=== PATIENT | female | born 1975 | race Caucasian/White ===

== ENCOUNTER 2017-09-05 16:34 | Emergency (ER) | payer OTHER ==
[2017-09-05] MEDS: DIPHENHYDRAMINE 25 MG CAP PO (18:22)
[2017-09-05] MEDS: HYDROCODONE/APAP (5/325) TAB PO (19:40)
[2017-09-05] MEDS: SOD CHLORIDE 0.9% 1,000 ML IV (19:47)
[2017-09-05] MEDS: DEXAMETHASONE 10 MG/ML 1 ML INJ PO (19:51)
== END 2017-09-05 21:52 | disposition home or self-care (01) ==
LOC: FTE 16:34
DX: R10.9 Unspecified abdominal pain (principal); C56.9 Malignant neoplasm of unspecified ovary; T36.8X5A Adverse effect of other systemic antibiotics, initial encounter
CPT/HCPCS: 96360; 99284-25

== ENCOUNTER 2017-09-07 09:43 | Observation (INO) | payer OTHER ==
[2017-09-07] MEDS: SOD CHLORIDE 0.9% 1,000 ML IV (11:13)
[2017-09-07] MEDS: ONDANSETRON 4 MG INJ IV (11:18)
[2017-09-07] MEDS: morphine 4 MG/ML VIAL IV (11:18)
[2017-09-07] MEDS: ACETAMINOPHEN 325 MG TAB PO (11:29)
[2017-09-07 11:32] LABS: ADD MAN DIFF? NO
[2017-09-07 11:40] LABS: WHITE BLOOD COUNT 5.9 10^3/ul (4.8-10.8)
[2017-09-07 11:40] LABS: BASOPHILS % 0.3 % (0.0-2.0); EOSINOPHILS % 0.5 % (0.0-7.0); HEMATOCRIT 37.3 % (37.0-47.0); HEMOGLOBIN 12.6 g/dl (12.0-16.0); LYMPHOCYTES # 1.1 10^3/ul (0.8-2.9); LYMPHOCYTES % 18.2 % (15.0-51.0); MEAN CORPUSCULAR HEMOGLOBIN 31.2 pg (29.0-33.0); MEAN CORPUSCULAR HGB CONC 33.8 g/dl (32.0-37.0); MEAN CORPUSCULAR VOLUME 92.3 fl (82.0-101.0); MEAN PLATELET VOLUME 9.7 fl (7.4-10.4); MONOCYTE # 0.4 10^3/ul (0.3-0.9); MONOCYTES % 6.9 % (0.0-11.0); NEUTROPHIL # 4.4 10^3/ul (1.6-7.5); NEUTROPHILS % 73.8 % (39.0-77.0); PLATELET COUNT 237 10^3/UL (140-415); RED BLOOD COUNT 4.04 10^6/ul (4.20-5.40); RED CELL DISTRIBUTION WIDTH 11.5 % (11.5-14.5)
[2017-09-07 11:54] LABS: ALANINE AMINOTRANSFERASE 38 IU/L (13-69); ALBUMIN 4.4 g/dl (3.3-4.9); ALBUMIN/GLOBULIN RATIO 1.18; ALKALINE PHOSPHATASE 100 IU/L (42-121); ANION GAP 20 (8-16); ASPARTATE AMINO TRANSFERASE 32 IU/L (15-46); BILIRUBIN,INDIRECT 0.1 mg/dl (0-1.1); BILIRUBIN,TOTAL 0.1 mg/dl (0.2-1.3); BLOOD UREA NITROGEN 11 mg/dl (7-20); CALCIUM 9.4 mg/dl (8.4-10.2); CARBON DIOXIDE 26 mmol/L (21-31); CHLORIDE 105 mmol/L (97-110); CREATININE 0.88 mg/dl (0.44-1.00); GLUCOSE 92 mg/dl (70-220); LIPASE 93 U/L (23-300); POTASSIUM 4.7 mmol/L (3.5-5.1); SODIUM 146 mmol/L (135-144); TOTAL PROTEIN 8.1 g/dl (6.1-8.1)
[2017-09-07 11:56] LABS: INR 1.04; PROTIME 13.7 Sec (11.9-14.9); PT RATIO 1.1
[2017-09-07 11:57] LABS: PARTIAL THROMBOPLASTIN TIME 31.9 Sec (25.0-35.0)
[2017-09-07 12:22] LABS: ADD UMIC NO; UR ASCORBIC ACID NEGATIVE (NEGATIVE); UR BILIRUBIN (Dip) NEGATIVE (NEGATIVE); UR BLOOD (Dip) NEGATIVE (NEGATIVE); UR CLARITY CLEAR (CLEAR); UR COLOR STRAW (YELLOW); UR GLUCOSE (Dip) NEGATIVE (NEGATIVE); UR KETONES (Dip) NEGATIVE (NEGATIVE); UR LEUKOCYTE ESTERASE (Dip) NEGATIVE Leu/ul (NEGATIVE); UR NITRITE (Dip) NEGATIVE (NEGATIVE); UR SPECIFIC GRAVITY (Dip) 1.004 (1.003-1.030); UR TOTAL PROTEIN (Dip) NEGATIVE (NEGATIVE); UR UROBILINOGEN (Dip) NEGATIVE (NEGATIVE)
[2017-09-07] MEDS ORDERED: ACETAMINOPHEN 325 MG TAB PO (12:30)
[2017-09-07] MEDS ORDERED: ONDANSETRON 4 MG INJ IV (12:30)
[2017-09-07] MEDS ORDERED: CEFTRIAXONE 1 GM/50 ML (PMX) 50 ML IVPB (17:00)
[2017-09-07] MEDS: CEFTRIAXONE 1 GM/50 ML (PMX) 50 ML IVPB (17:43)
[2017-09-07] MEDS ORDERED: morphine 2 MG INJ IV (23:30)
[2017-09-08] MEDS: LORAZEPAM 0.5 MG TAB PO (02:38)
[2017-09-08] MEDS: ACETAMINOPHEN 325 MG TAB PO ×2 (03:04→21:24)
[2017-09-08 05:19] LABS: ADD MAN DIFF? NO
[2017-09-08 05:29] LABS: BASOPHILS % 0.4 % (0.0-2.0); EOSINOPHILS # 0.1 10^3/ul (0.0-0.5); EOSINOPHILS % 2.8 % (0.0-7.0); HEMATOCRIT 35.2 % (37.0-47.0); HEMOGLOBIN 11.9 g/dl (12.0-16.0); LYMPHOCYTES # 1.3 10^3/ul (0.8-2.9); LYMPHOCYTES % 26.4 % (15.0-51.0); MEAN CORPUSCULAR HGB CONC 33.8 g/dl (32.0-37.0); MEAN CORPUSCULAR VOLUME 91.7 fl (82.0-101.0); MONOCYTE # 0.4 10^3/ul (0.3-0.9); MONOCYTES % 8.5 % (0.0-11.0); NEUTROPHIL # 3.1 10^3/ul (1.6-7.5); NEUTROPHILS % 61.9 % (39.0-77.0); PLATELET COUNT 215 10^3/UL (140-415); RED BLOOD COUNT 3.84 10^6/ul (4.20-5.40); RED CELL DISTRIBUTION WIDTH 11.7 % (11.5-14.5)
[2017-09-08 05:54] LABS: ANION GAP 18 (8-16); BLOOD UREA NITROGEN 10 mg/dl (7-20); CALCIUM 9.5 mg/dl (8.4-10.2); CARBON DIOXIDE 27 mmol/L (21-31); CHLORIDE 106 mmol/L (97-110); CREATININE 0.76 mg/dl (0.44-1.00); GLUCOSE 93 mg/dl (70-220); POTASSIUM 4.1 mmol/L (3.5-5.1); SODIUM 147 mmol/L (135-144)
[2017-09-08] MEDS: PANTOPRAZOLE (EC) 40 MG TAB PO (06:11)
[2017-09-08] MEDS: ENOXAPARIN 30 MG/0.3 ML SYG SC ×2 (09:00→20:42)
[2017-09-08] MEDS: SOD CHLORIDE 0.9% 500 ML IVPB (15:09)
[2017-09-08 15:24] LABS: ADD UMIC NO; UR ASCORBIC ACID NEGATIVE (NEGATIVE); UR BILIRUBIN (Dip) NEGATIVE (NEGATIVE); UR BLOOD (Dip) NEGATIVE (NEGATIVE); UR CLARITY CLEAR (CLEAR); UR COLOR COLORLESS (YELLOW); UR GLUCOSE (Dip) NEGATIVE (NEGATIVE); UR KETONES (Dip) NEGATIVE (NEGATIVE); UR LEUKOCYTE ESTERASE (Dip) NEGATIVE Leu/ul (NEGATIVE); UR NITRITE (Dip) NEGATIVE (NEGATIVE); UR SPECIFIC GRAVITY (Dip) 1.004 (1.003-1.030); UR TOTAL PROTEIN (Dip) NEGATIVE (NEGATIVE); UR UROBILINOGEN (Dip) NEGATIVE (NEGATIVE)
[2017-09-08] MEDS: SOD FERRIC GLUC COMPLX 125 MG in SOD CHLORIDE 0.9% 100 ML IVPB (16:21)
[2017-09-08] MEDS ORDERED: DEXAMETHASONE 10 MG/ML 1 ML INJ IV (18:00)
[2017-09-08] MEDS ORDERED: DIPHENHYDRAMINE 50 MG INJ IV (18:00)
[2017-09-08] MEDS: DEXAMETHASONE IVPB (22:16)
[2017-09-08] MEDS: DEXTROSE 5% IVPB (22:16)
[2017-09-08] MEDS: DIPHENHYDRAMINE 50 MG INJ IV (22:16)
[2017-09-08] MEDS: ONDANSETRON IVPB (22:16)
[2017-09-08] MEDS: CARBOPLATIN IV (22:39)
[2017-09-08] MEDS: SOD CHLORIDE 0.9% IV (22:39)
[2017-09-09] MEDS: SOD CHLORIDE 0.9% IV ×2 (01:14→16:28)
[2017-09-09] MEDS: GEMCITABINE IV (01:14)
[2017-09-09 05:15] LABS: ADD MAN DIFF? NO
[2017-09-09 05:19] LABS: BASOPHILS % 0.4 % (0.0-2.0); EOSINOPHILS % 0.2 % (0.0-7.0); HEMATOCRIT 37.6 % (37.0-47.0); HEMOGLOBIN 12.5 g/dl (12.0-16.0); LYMPHOCYTES # 0.7 10^3/ul (0.8-2.9); LYMPHOCYTES % 14.7 % (15.0-51.0); MEAN CORPUSCULAR HEMOGLOBIN 30.5 pg (29.0-33.0); MEAN CORPUSCULAR HGB CONC 33.2 g/dl (32.0-37.0); MEAN CORPUSCULAR VOLUME 91.7 fl (82.0-101.0); MEAN PLATELET VOLUME 10.2 fl (7.4-10.4); MONOCYTE # 0.1 10^3/ul (0.3-0.9); MONOCYTES % 1.1 % (0.0-11.0); NEUTROPHIL # 3.8 10^3/ul (1.6-7.5); NEUTROPHILS % 83.4 % (39.0-77.0); PLATELET COUNT 239 10^3/UL (140-415); RED CELL DISTRIBUTION WIDTH 11.6 % (11.5-14.5)
[2017-09-09 05:19] LABS: WHITE BLOOD COUNT 4.5 10^3/ul (4.8-10.8)
[2017-09-09] MEDS: PANTOPRAZOLE (EC) 40 MG TAB PO (05:40)
[2017-09-09 05:45] LABS: ANION GAP 18 (8-16); BLOOD UREA NITROGEN 13 mg/dl (7-20); CALCIUM 9.5 mg/dl (8.4-10.2); CARBON DIOXIDE 26 mmol/L (21-31); CHLORIDE 107 mmol/L (97-110); CREATININE 0.76 mg/dl (0.44-1.00); GLUCOSE 142 mg/dl (70-220); POTASSIUM 4.7 mmol/L (3.5-5.1); SODIUM 146 mmol/L (135-144)
[2017-09-09] MEDS: ENOXAPARIN 30 MG/0.3 ML SYG SC ×2 (09:00→21:00)
[2017-09-09] MEDS: SOD CHLORIDE 0.9% 500 ML IV (13:20)
[2017-09-09] MEDS ORDERED: DEXAMETHASONE IVPB (14:30)
[2017-09-09] MEDS ORDERED: DEXTROSE 5% IVPB (14:30)
[2017-09-09] MEDS ORDERED: ONDANSETRON IVPB (14:30)
[2017-09-09] MEDS: DIPHENHYDRAMINE 50 MG INJ IV (15:24)
[2017-09-09] MEDS: ONDANSETRON IV (15:24)
[2017-09-09] MEDS: DEXTROSE 5% IV (15:24)
[2017-09-09] MEDS: ACETAMINOPHEN 325 MG TAB PO (15:42)
[2017-09-09] MEDS: BEVACIZUMAB IV (16:28)
[2017-09-09] MEDS: SOD FERRIC GLUC COMPLX 125 MG in SOD CHLORIDE 0.9% 100 ML IVPB (18:27)
[2017-09-09] MEDS: SOD CHLORIDE 0.9% 1,000 ML IV (20:17)
[2017-09-10 05:08] LABS: ADD MAN DIFF? NO
[2017-09-10 05:13] LABS: BASOPHILS % 0.2 % (0.0-2.0); EOSINOPHILS % 0.4 % (0.0-7.0); HEMATOCRIT 32.6 % (37.0-47.0); HEMOGLOBIN 10.9 g/dl (12.0-16.0); LYMPHOCYTES # 1.2 10^3/ul (0.8-2.9); LYMPHOCYTES % 22.5 % (15.0-51.0); MEAN CORPUSCULAR HEMOGLOBIN 30.9 pg (29.0-33.0); MEAN CORPUSCULAR HGB CONC 33.4 g/dl (32.0-37.0); MEAN CORPUSCULAR VOLUME 92.4 fl (82.0-101.0); MEAN PLATELET VOLUME 10.1 fl (7.4-10.4); MONOCYTE # 0.5 10^3/ul (0.3-0.9); MONOCYTES % 8.8 % (0.0-11.0); NEUTROPHIL # 3.6 10^3/ul (1.6-7.5); NEUTROPHILS % 67.7 % (39.0-77.0); PLATELET COUNT 201 10^3/UL (140-415); RED BLOOD COUNT 3.53 10^6/ul (4.20-5.40); RED CELL DISTRIBUTION WIDTH 11.4 % (11.5-14.5)
[2017-09-10 05:13] LABS: WHITE BLOOD COUNT 5.4 10^3/ul (4.8-10.8)
[2017-09-10] MEDS: PANTOPRAZOLE (EC) 40 MG TAB PO (05:39)
[2017-09-10] MEDS: SOD CHLORIDE 0.9% 1,000 ML IV (05:39)
[2017-09-10 05:42] LABS: ANION GAP 13 (8-16); BLOOD UREA NITROGEN 10 mg/dl (7-20); CALCIUM 8.5 mg/dl (8.4-10.2); CARBON DIOXIDE 26 mmol/L (21-31); CHLORIDE 108 mmol/L (97-110); CREATININE 0.76 mg/dl (0.44-1.00); GLUCOSE 99 mg/dl (70-220); POTASSIUM 4.2 mmol/L (3.5-5.1); SODIUM 143 mmol/L (135-144)
[2017-09-10] MEDS: ENOXAPARIN 30 MG/0.3 ML SYG SC (08:31)
[2017-09-10] MEDS: SENNA TAB PO (08:31)
[2017-09-10] MEDS: ONDANSETRON 4 MG INJ IV (09:56)
[2017-09-10] MEDS ORDERED: SOD FERRIC GLUC COMPLX 125 MG in SOD CHLORIDE 0.9% 100 ML IVPB (10:00)
[2017-09-10] MEDS: EPOETIN 10000 UNITS/ML VIAL (ONCOLOGY) SC (11:00)
[2017-09-10] MEDS: SOD FERRIC GLUC COMPLX 125 MG in SOD CHLORIDE 0.9% 100 ML IVPB (11:07)
== END 2017-09-10 14:19 | disposition home or self-care (01) ==
LOC: E/R 09:43 → MS3 12:06 → MS1 21:09
DX: C56.9 Malignant neoplasm of unspecified ovary (principal); R33.9 Retention of urine, unspecified; F41.9 Anxiety disorder, unspecified; Z90.710 Acquired absence of both cervix and uterus; Z90.722 Acquired absence of ovaries, bilateral
CPT/HCPCS: 36415; 76856; 80048; 80053; 81003; 83690; 85025; 85610; 85730; 86304; 87086; 99285-25; J0885; J9045; J9201

== ENCOUNTER 2018-01-09 22:39 | Observation (INO) | payer OTHER ==
[2018-01-09 23:15] LABS: ADD MAN DIFF? NO
[2018-01-09 23:21] LABS: ABNORMAL IP MESSAGE 1; HEMATOCRIT 32.3 % (37.0-47.0); HEMOGLOBIN 10.8 g/dl (12.0-16.0); LYMPHOCYTES # 1.3 10^3/ul (0.8-2.9); LYMPHOCYTES % 61.2 % (15.0-51.0); MEAN CORPUSCULAR HEMOGLOBIN 32.9 pg (29.0-33.0); MEAN CORPUSCULAR HGB CONC 33.4 g/dl (32.0-37.0); MEAN CORPUSCULAR VOLUME 98.5 fl (82.0-101.0); MEAN PLATELET VOLUME 9.9 fl (7.4-10.4); MONOCYTE # 0.3 10^3/ul (0.3-0.9); MONOCYTES % 12.1 % (0.0-11.0); NEUTROPHIL # 0.5 10^3/ul (1.6-7.5); NEUTROPHILS % 25.7 % (39.0-77.0); PLATELET COUNT 39 10^3/UL (140-415); RED BLOOD COUNT 3.28 10^6/ul (4.20-5.40); RED CELL DISTRIBUTION WIDTH 12.6 % (11.5-14.5)
[2018-01-09 23:21] LABS: WHITE BLOOD COUNT 2.1 10^3/ul (4.8-10.8)
[2018-01-09] MEDS: SODIUM CHLORIDE 0.9% 1L BAG IV* (23:32)
[2018-01-09 23:36] LABS: POSITIVE DIFF @See below
[2018-01-09 23:42] LABS: ALANINE AMINOTRANSFERASE 90 IU/L (13-69); ALBUMIN 4.6 g/dl (3.3-4.9); ALBUMIN/GLOBULIN RATIO 1.48; ALKALINE PHOSPHATASE 85 IU/L (42-121); ANION GAP 10 (8-16); ASPARTATE AMINO TRANSFERASE 52 IU/L (15-46); BILIRUBIN,INDIRECT 0.4 mg/dl (0-1.1); BILIRUBIN,TOTAL 0.4 mg/dl (0.2-1.3); BLOOD UREA NITROGEN 17 mg/dl (7-20); CALCIUM 9.2 mg/dl (8.4-10.2); CARBON DIOXIDE 26 mmol/L (21-31); CHLORIDE 110 mmol/L (97-110); CREATININE 0.65 mg/dl (0.44-1.00); GLUCOSE 101 mg/dl (70-220); POTASSIUM 3.9 mmol/L (3.5-5.1); SODIUM 142 mmol/L (135-144); TOTAL PROTEIN 7.7 g/dl (6.1-8.1)
[2018-01-09 23:44] LABS: INR 0.93; PARTIAL THROMBOPLASTIN TIME 30.9 Sec (25.0-35.0); PROTIME 12.5 Sec (11.9-14.9)
[2018-01-09 23:54] LABS: B-TYPE NATRIURETIC PEPTIDE 34 PG/ML (0-125); TROPONIN-I < 0.010 ng/ml (0.000-0.120)
[2018-01-10] MEDS ORDERED: morphine 4 MG/ML VIAL IV (00:10)
[2018-01-10] MEDS: ONDANSETRON 4 MG INJ IV (00:21)
[2018-01-10] MEDS: HYDROmorphONE 1 MG/ML SYG IV (00:33)
[2018-01-10] MEDS: PIPER-TAZO 3.375 GM IV (PMX) 100 ML IVPB (01:57)
[2018-01-10 02:18] LABS: LACTIC ACID 0.9 mmol/L (0.5-2.0)
[2018-01-10] MEDS ORDERED: VANCOMYCIN IV PER PHARMACY XX (04:30)
[2018-01-10] MEDS ORDERED: ONDANSETRON 4 MG INJ IV (04:30)
[2018-01-10] MEDS ORDERED: HYDROmorphONE 1 MG/ML SYG IV (04:30)
[2018-01-10] MEDS ORDERED: PENDING SANTYL ORDER FOR WOUND CARE XX (04:30)
[2018-01-10] MEDS: SOD CHLORIDE 0.9% 1,000 ML IV (05:17)
[2018-01-10] MEDS: VANCOMYCIN 1.25 GM in SOD CHLORIDE 0.9% 250 ML IVPB (05:17)
[2018-01-10 06:19] LABS: ABNORMAL IP MESSAGE 1; HEMATOCRIT 29.1 % (37.0-47.0); HEMOGLOBIN 9.5 g/dl (12.0-16.0); MEAN CORPUSCULAR HGB CONC 32.6 g/dl (32.0-37.0); MEAN PLATELET VOLUME 9.9 fl (7.4-10.4); RED BLOOD COUNT 2.97 10^6/ul (4.20-5.40); RED CELL DISTRIBUTION WIDTH 12.8 % (11.5-14.5)
[2018-01-10 06:19] LABS: WHITE BLOOD COUNT 1.9 10^3/ul (4.8-10.8)
[2018-01-10 06:38] LABS: LACTIC ACID 0.9 mmol/L (0.5-2.0)
[2018-01-10 06:40] LABS: ANION GAP 9 (8-16); BLOOD UREA NITROGEN 11 mg/dl (7-20); CALCIUM 8.3 mg/dl (8.4-10.2); CARBON DIOXIDE 25 mmol/L (21-31); CHLORIDE 111 mmol/L (97-110); CREATININE 0.62 mg/dl (0.44-1.00); GLUCOSE 96 mg/dl (70-220); POTASSIUM 3.9 mmol/L (3.5-5.1); SODIUM 141 mmol/L (135-144)
[2018-01-10 06:45] LABS: POSITIVE DIFF @See below
[2018-01-10 06:47] LABS: PLATELET COUNT 29 10^3/UL (140-415)
[2018-01-10 06:48] LABS: ADD MAN DIFF? YES
[2018-01-10 07:54] LABS: ANISOCYTOSIS 1+ (0-0); BAND NEUTROPHILS % (M) 1 % (0-4); EOSINOPHILS % (M) 3 % (0-7); ERYTHROBLAST% (NRBC) (M) 1 % (0-0); GIANT THROMBO% (M) 1 % (0-0); HYPOCHROMASIA 1+ (0-0); LYMPHOCYTES #M 1.1 10^3/ul (0.8-2.9); LYMPHOCYTES % (M) 63 % (15-51); METAMYELOCYTES %M 2 % (0-0); MONOCYTE #M 0.1 10^3/ul (0.3-0.9); MONOCYTES % (M) 6 % (0-11); MYELOCYTES % (M) 1 % (0-0); PLATELET ESTIMATE DECREASED; POLYCHROMASIA 1+ (0-0); REACTIVE LYMPHOCYTES% (M) 5 % (0-0); SEG NEUT #M 0.3 10^3/ul (1.6-7.5); SEGMENTED NEUTROPHILS (M) % 18 % (39-77); SMUDGE%M 13 % (0-0); TEAR DROP CELLS 1+ (0-0)
[2018-01-10] MEDS: ENOXAPARIN 30 MG/0.3 ML SYG SC (09:00)
[2018-01-10] MEDS ORDERED: VANCOMYCIN 850 MG in SOD CHLORIDE 0.9% 250 ML IVPB (17:00)
[2018-01-10] MEDS: VANCOMYCIN 1 GM 250 ML IVPB (17:13)
[2018-01-10] MEDS: DIPHENHYDRAMINE 25 MG CAP PO (18:33)
[2018-01-11] MEDS: SOD CHLORIDE 0.9% 1,000 ML IV (04:30)
[2018-01-11] MEDS: VANCOMYCIN 1 GM 250 ML IVPB (04:56)
[2018-01-11 05:18] LABS: ADD MAN DIFF? NO
[2018-01-11 05:24] LABS: ABNORMAL IP MESSAGE 1; BASOPHILS % 0.4 % (0.0-2.0); EOSINOPHILS % 1.2 % (0.0-7.0); HEMATOCRIT 30.8 % (37.0-47.0); HEMOGLOBIN 10.4 g/dl (12.0-16.0); LYMPHOCYTES # 1.2 10^3/ul (0.8-2.9); LYMPHOCYTES % 47.9 % (15.0-51.0); MEAN CORPUSCULAR HEMOGLOBIN 32.9 pg (29.0-33.0); MEAN CORPUSCULAR HGB CONC 33.8 g/dl (32.0-37.0); MEAN CORPUSCULAR VOLUME 97.5 fl (82.0-101.0); MEAN PLATELET VOLUME 10.5 fl (7.4-10.4); MONOCYTE # 0.3 10^3/ul (0.3-0.9); MONOCYTES % 11.7 % (0.0-11.0); NEUTROPHILS % 38.4 % (39.0-77.0); PLATELET COUNT 34 10^3/UL (140-415); RED BLOOD COUNT 3.16 10^6/ul (4.20-5.40); RED CELL DISTRIBUTION WIDTH 12.7 % (11.5-14.5)
[2018-01-11 05:24] LABS: WHITE BLOOD COUNT 2.6 10^3/ul (4.8-10.8)
[2018-01-11 05:44] LABS: ANION GAP 10 (8-16); BLOOD UREA NITROGEN 11 mg/dl (7-20); CALCIUM 8.8 mg/dl (8.4-10.2); CARBON DIOXIDE 26 mmol/L (21-31); CHLORIDE 111 mmol/L (97-110); CREATININE 0.61 mg/dl (0.44-1.00); GLUCOSE 93 mg/dl (70-220); POTASSIUM 3.9 mmol/L (3.5-5.1); SODIUM 143 mmol/L (135-144)
[2018-01-11 05:58] LABS: POSITIVE DIFF @See below
== END 2018-01-11 16:13 | disposition home or self-care (01) ==
LOC: E/R 22:39 → PP2 01-10 01:25
DX: L03.116 Cellulitis of left lower limb (principal); L03.115 Cellulitis of right lower limb; C56.9 Malignant neoplasm of unspecified ovary; C78.6 Secondary malignant neoplasm of retroperitoneum and peritoneum; D61.818 Other pancytopenia
CPT/HCPCS: 36415; 71045; 80048; 80053; 83605; 83880; 84484; 85025; 85610; 85730; 87040; 93005; 96374; 96375; 99285-25; G0378

== ENCOUNTER 2018-03-27 12:59 | Emergency (ER) | payer OTHER ==
[2018-03-27] MEDS: SOD CHLORIDE 0.9% 1,000 ML IV (13:52)
[2018-03-27] MEDS: ONDANSETRON 4 MG INJ IV (13:52)
[2018-03-27 14:02] LABS: ADD MAN DIFF? NO
[2018-03-27 14:03] LABS: WHITE BLOOD COUNT 3.2 10^3/ul (4.8-10.8)
[2018-03-27 14:04] LABS: BASOPHILS % 0.3 % (0.0-2.0); EOSINOPHILS # 0.1 10^3/ul (0.0-0.5); EOSINOPHILS % 1.6 % (0.0-7.0); HEMATOCRIT 39.2 % (37.0-47.0); HEMOGLOBIN 12.9 g/dl (12.0-16.0); LYMPHOCYTES # 1.2 10^3/ul (0.8-2.9); LYMPHOCYTES % 35.8 % (15.0-51.0); MEAN CORPUSCULAR HEMOGLOBIN 33.5 pg (29.0-33.0); MEAN CORPUSCULAR HGB CONC 32.9 g/dl (32.0-37.0); MEAN CORPUSCULAR VOLUME 101.8 fl (82.0-101.0); MEAN PLATELET VOLUME 9.3 fl (7.4-10.4); MONOCYTE # 0.4 10^3/ul (0.3-0.9); MONOCYTES % 11.8 % (0.0-11.0); NEUTROPHIL # 1.6 10^3/ul (1.6-7.5); NEUTROPHILS % 50.2 % (39.0-77.0); PLATELET COUNT 152 10^3/UL (140-415); RED BLOOD COUNT 3.85 10^6/ul (4.20-5.40); RED CELL DISTRIBUTION WIDTH 13.2 % (11.5-14.5)
[2018-03-27 14:07] LABS: ADD UMIC YES; UR ASCORBIC ACID NEGATIVE (NEGATIVE); UR BILIRUBIN (Dip) NEGATIVE (NEGATIVE); UR BLOOD (Dip) NEGATIVE (NEGATIVE); UR CLARITY CLEAR (CLEAR); UR COLOR YELLOW (YELLOW); UR GLUCOSE (Dip) NEGATIVE (NEGATIVE); UR KETONES (Dip) NEGATIVE (NEGATIVE); UR LEUKOCYTE ESTERASE (Dip) 1+ Leu/ul (NEGATIVE); UR NITRITE (Dip) NEGATIVE (NEGATIVE); UR RBC 1 /HPF (0-5); UR SPECIFIC GRAVITY (Dip) 1.013 (1.003-1.030); UR TOTAL PROTEIN (Dip) NEGATIVE (NEGATIVE); UR UROBILINOGEN (Dip) NEGATIVE (NEGATIVE); UR WBC 1 /HPF (0-5)
[2018-03-27 14:25] LABS: ALANINE AMINOTRANSFERASE 92 IU/L (13-69); ALBUMIN 4.4 g/dl (3.3-4.9); ALBUMIN/GLOBULIN RATIO 1.22; ALKALINE PHOSPHATASE 73 IU/L (42-121); ANION GAP 11 (8-16); ASPARTATE AMINO TRANSFERASE 60 IU/L (15-46); BILIRUBIN,INDIRECT 0.3 mg/dl (0-1.1); BILIRUBIN,TOTAL 0.3 mg/dl (0.2-1.3); BLOOD UREA NITROGEN 10 mg/dl (7-20); CALCIUM 9.2 mg/dl (8.4-10.2); CARBON DIOXIDE 30 mmol/L (21-31); CHLORIDE 106 mmol/L (97-110); CREATININE 0.64 mg/dl (0.44-1.00); GLUCOSE 69 mg/dl (70-220); LIPASE 166 U/L (23-300); POTASSIUM 4.1 mmol/L (3.5-5.1); SODIUM 143 mmol/L (135-144)
[2018-03-27] MEDS: ACETAMINOPHEN 325 MG TAB PO (14:47)
[2018-03-27] MEDS: CEPHALEXIN 500 MG CAP PO (15:28)
[2018-03-27] MEDS: KETOROLAC 15 MG INJ IV (15:34)
== END 2018-03-27 16:44 | disposition home or self-care (01) ==
LOC: FTE 12:59
DX: K08.89 Other specified disorders of teeth and supporting structures (principal); Z85.43 Personal history of malignant neoplasm of ovary
CPT/HCPCS: 36415; 70450; 70486; 80053; 81001; 83690; 85025; 96361; 96374; 99285-25

== ENCOUNTER 2018-04-20 17:13 | Emergency (ER) | payer OTHER | END 2018-04-20 18:52 | disposition home or self-care (01) | LOC: FTE 17:13 | DX: M54.16 Radiculopathy, lumbar region (principal); C56.9 Malignant neoplasm of unspecified ovary | CPT/HCPCS: 93971; 99284-25 ==

== ENCOUNTER 2018-05-07 13:58 | Emergency (ER) | payer OTHER ==
[2018-05-07] MEDS ORDERED: morphine 4 MG/ML VIAL IM (14:55)
[2018-05-07] MEDS: KETOROLAC 15 MG INJ IV (16:07)
== END 2018-05-07 16:34 | disposition home or self-care (01) ==
LOC: E/R 16:34
DX: G51.8 Other disorders of facial nerve (principal); S00.83XA Contusion of other part of head, initial encounter; X58.XXXA Exposure to other specified factors, initial encounter; Y92.9 Unspecified place or not applicable; Z85.43 Personal history of malignant neoplasm of ovary
CPT/HCPCS: 96374; 99284-25

== ENCOUNTER 2018-05-08 00:48 | Emergency (ER) | payer OTHER ==
[2018-05-08 01:44] LABS: ADD MAN DIFF? NO
[2018-05-08 01:45] LABS: BASOPHILS % 0.4 % (0.0-2.0); EOSINOPHILS # 0.1 10^3/ul (0.0-0.5); EOSINOPHILS % 2.7 % (0.0-7.0); HEMATOCRIT 41.7 % (37.0-47.0); HEMOGLOBIN 13.9 g/dl (12.0-16.0); LYMPHOCYTES # 1.3 10^3/ul (0.8-2.9); LYMPHOCYTES % 26.1 % (15.0-51.0); MEAN CORPUSCULAR HEMOGLOBIN 33.6 pg (29.0-33.0); MEAN CORPUSCULAR HGB CONC 33.3 g/dl (32.0-37.0); MEAN CORPUSCULAR VOLUME 100.7 fl (82.0-101.0); MONOCYTE # 0.5 10^3/ul (0.3-0.9); MONOCYTES % 9.9 % (0.0-11.0); NEUTROPHIL # 2.9 10^3/ul (1.6-7.5); NEUTROPHILS % 60.5 % (39.0-77.0); PLATELET COUNT 175 10^3/UL (140-415); RED BLOOD COUNT 4.14 10^6/ul (4.20-5.40); RED CELL DISTRIBUTION WIDTH 11.9 % (11.5-14.5)
[2018-05-08 01:45] LABS: WHITE BLOOD COUNT 4.8 10^3/ul (4.8-10.8)
[2018-05-08 01:49] LABS: ADD UMIC YES; UR ASCORBIC ACID NEGATIVE (NEGATIVE); UR BILIRUBIN (Dip) NEGATIVE (NEGATIVE); UR BLOOD (Dip) NEGATIVE (NEGATIVE); UR CLARITY CLEAR (CLEAR); UR COLOR STRAW (YELLOW); UR GLUCOSE (Dip) NEGATIVE (NEGATIVE); UR KETONES (Dip) NEGATIVE (NEGATIVE); UR LEUKOCYTE ESTERASE (Dip) TRACE Leu/ul (NEGATIVE); UR NITRITE (Dip) NEGATIVE (NEGATIVE); UR RBC 0 /HPF (0-5); UR SPECIFIC GRAVITY (Dip) 1.004 (1.003-1.030); UR TOTAL PROTEIN (Dip) NEGATIVE (NEGATIVE); UR UROBILINOGEN (Dip) NEGATIVE (NEGATIVE); UR WBC 2 /HPF (0-5)
[2018-05-08 02:12] LABS: ALANINE AMINOTRANSFERASE 73 IU/L (13-69); ALBUMIN 4.6 g/dl (3.3-4.9); ALBUMIN/GLOBULIN RATIO 1.27; ALKALINE PHOSPHATASE 80 IU/L (42-121); ANION GAP 7 (5-13); ASPARTATE AMINO TRANSFERASE 55 IU/L (15-46); BILIRUBIN,INDIRECT 0.5 mg/dl (0-1.1); BILIRUBIN,TOTAL 0.5 mg/dl (0.2-1.3); BLOOD UREA NITROGEN 10 mg/dl (7-20); CALCIUM 9.5 mg/dl (8.4-10.2); CARBON DIOXIDE 30 mmol/L (21-31); CHLORIDE 105 mmol/L (97-110); CREATININE 0.63 mg/dl (0.44-1.00); Estimated GFR > 60 mL/min (>60); GLUCOSE 104 mg/dl (70-220); POTASSIUM 4.2 mmol/L (3.5-5.1); SODIUM 142 mmol/L (135-144); TOTAL PROTEIN 8.2 g/dl (6.1-8.1)
[2018-05-08] MEDS: SOD CHLORIDE 0.9% 100 ML (02:16)
[2018-05-08] MEDS: IOHEXOL 300MG/ML 150 ML BTL (02:16)
[2018-05-08] MEDS ORDERED: morphine 2 MG INJ IV (02:49)
[2018-05-08] MEDS: SOD CHLORIDE 0.9% 1,000 ML IV (02:55)
[2018-05-08] MEDS: ACETAMINOPHEN 500 MG TAB PO (03:02)
[2018-05-08] MEDS: ACETAMINOPHEN 160 MG/5ML CUP PO (03:18)
== END 2018-05-08 03:57 | disposition home or self-care (01) ==
LOC: FTE 00:48
DX: K08.409 Partial loss of teeth, unspecified cause, unspecified class (principal); J02.9 Acute pharyngitis, unspecified; N39.0 Urinary tract infection, site not specified; C56.9 Malignant neoplasm of unspecified ovary; R51 Headache
CPT/HCPCS: 36415; 70450; 70486; 80053; 81001; 84703; 85025; 99285-25

== ENCOUNTER 2018-06-13 14:59 | Emergency (ER) | payer OTHER ==
[2018-06-13 22:29] LABS: ADD MAN DIFF? NO
[2018-06-13 22:34] LABS: WHITE BLOOD COUNT 6.2 10^3/ul (4.8-10.8)
[2018-06-13 22:34] LABS: BASOPHILS % 0.2 % (0.0-2.0); EOSINOPHILS # 0.2 10^3/ul (0.0-0.5); EOSINOPHILS % 3.7 % (0.0-7.0); HEMATOCRIT 36.6 % (37.0-47.0); HEMOGLOBIN 12.3 g/dl (12.0-16.0); LYMPHOCYTES # 1.9 10^3/ul (0.8-2.9); LYMPHOCYTES % 30.2 % (15.0-51.0); MEAN CORPUSCULAR HEMOGLOBIN 33.2 pg (29.0-33.0); MEAN CORPUSCULAR HGB CONC 33.6 g/dl (32.0-37.0); MEAN CORPUSCULAR VOLUME 98.7 fl (82.0-101.0); MEAN PLATELET VOLUME 9.3 fl (7.4-10.4); MONOCYTE # 0.6 10^3/ul (0.3-0.9); MONOCYTES % 10.4 % (0.0-11.0); NEUTROPHIL # 3.4 10^3/ul (1.6-7.5); NEUTROPHILS % 55.5 % (39.0-77.0); PLATELET COUNT 181 10^3/UL (140-415); RED BLOOD COUNT 3.71 10^6/ul (4.20-5.40); RED CELL DISTRIBUTION WIDTH 11.5 % (11.5-14.5)
[2018-06-13] MEDS: morphine 4 MG/ML VIAL IV (22:36)
[2018-06-13] MEDS: SOD CHLORIDE 0.9% 500 ML IV (22:36)
[2018-06-13 22:37] LABS: ADD UMIC YES; UR ASCORBIC ACID NEGATIVE (NEGATIVE); UR BILIRUBIN (Dip) NEGATIVE (NEGATIVE); UR BLOOD (Dip) NEGATIVE (NEGATIVE); UR CLARITY CLEAR (CLEAR); UR COLOR YELLOW (YELLOW); UR GLUCOSE (Dip) NEGATIVE (NEGATIVE); UR KETONES (Dip) NEGATIVE (NEGATIVE); UR LEUKOCYTE ESTERASE (Dip) 1+ Leu/ul (NEGATIVE); UR MUCUS FEW /HPF (NONE SEEN); UR NITRITE (Dip) NEGATIVE (NEGATIVE); UR RBC 0 /HPF (0-5); UR SPECIFIC GRAVITY (Dip) 1.015 (1.003-1.030); UR TOTAL PROTEIN (Dip) NEGATIVE (NEGATIVE); UR UROBILINOGEN (Dip) NEGATIVE (NEGATIVE); UR WBC 6 /HPF (0-5)
[2018-06-13] MEDS: ONDANSETRON 4 MG INJ IV (22:37)
[2018-06-13 22:51] LABS: ALANINE AMINOTRANSFERASE 46 IU/L (13-69); ALBUMIN 4.1 g/dl (3.3-4.9); ALBUMIN/GLOBULIN RATIO 1.24; ALKALINE PHOSPHATASE 97 IU/L (42-121); ANION GAP 8 (5-13); ASPARTATE AMINO TRANSFERASE 39 IU/L (15-46); BILIRUBIN,INDIRECT 0.2 mg/dl (0-1.1); BILIRUBIN,TOTAL 0.2 mg/dl (0.2-1.3); BLOOD UREA NITROGEN 12 mg/dl (7-20); CALCIUM 9.1 mg/dl (8.4-10.2); CARBON DIOXIDE 27 mmol/L (21-31); CHLORIDE 105 mmol/L (97-110); CREATININE 0.61 mg/dl (0.44-1.00); Estimated GFR > 60 mL/min (>60); GLUCOSE 102 mg/dl (70-220); LIPASE 164 U/L (23-300); SODIUM 140 mmol/L (135-144); TOTAL PROTEIN 7.4 g/dl (6.1-8.1)
[2018-06-13 23:02] LABS: TROPONIN-I < 0.012 ng/ml (0.000-0.120)
[2018-06-14] MEDS: KETOROLAC 30 MG INJ IV (00:26)
== END 2018-06-14 01:40 | disposition home or self-care (01) ==
LOC: E/R 06-14 01:40
DX: R10.13 Epigastric pain (principal); R07.9 Chest pain, unspecified; R11.0 Nausea; Z85.43 Personal history of malignant neoplasm of ovary
CPT/HCPCS: 36415; 71045; 74176; 80053; 81001; 83690; 84484; 85025; 93005; 96374; 96375; 99285-25

== ENCOUNTER 2018-06-14 10:27 | Emergency (ER) | payer OTHER ==
[2018-06-14 11:57] LABS: ADD UMIC YES; UR ASCORBIC ACID NEGATIVE (NEGATIVE); UR BACTERIA FEW /HPF (NONE SEEN); UR BILIRUBIN (Dip) NEGATIVE (NEGATIVE); UR BLOOD (Dip) NEGATIVE (NEGATIVE); UR CLARITY CLEAR (CLEAR); UR COLOR STRAW (YELLOW); UR GLUCOSE (Dip) NEGATIVE (NEGATIVE); UR KETONES (Dip) NEGATIVE (NEGATIVE); UR LEUKOCYTE ESTERASE (Dip) TRACE Leu/ul (NEGATIVE); UR NITRITE (Dip) NEGATIVE (NEGATIVE); UR RBC 0 /HPF (0-5); UR SPECIFIC GRAVITY (Dip) 1.006 (1.003-1.030); UR TOTAL PROTEIN (Dip) NEGATIVE (NEGATIVE); UR UROBILINOGEN (Dip) NEGATIVE (NEGATIVE); UR WBC 0 /HPF (0-5)
[2018-06-14] MEDS: KETOROLAC 60 MG INJ IM (12:13)
[2018-06-14] MEDS: LIDOCAINE 1% (MPF) 5 ML VIAL INJ (12:16)
[2018-06-14] MEDS: CEFTRIAXONE 500 MG INJ IM (12:16)
== END 2018-06-14 13:00 | disposition home or self-care (01) ==
LOC: FTE 10:27
DX: R10.84 Generalized abdominal pain (principal); R19.7 Diarrhea, unspecified; Z85.43 Personal history of malignant neoplasm of ovary
CPT/HCPCS: 81001; 81025; 87086; 96372; 99284-25

== ENCOUNTER 2018-09-14 10:59 | Emergency (ER) | payer OTHER ==
[2018-09-14 13:03] LABS: ADD MAN DIFF? NO
[2018-09-14 13:15] LABS: WHITE BLOOD COUNT 3.7 10^3/ul (4.8-10.8)
[2018-09-14 13:15] LABS: BASOPHILS % 0.3 % (0.0-2.0); EOSINOPHILS % 0.8 % (0.0-7.0); HEMATOCRIT 37.3 % (37.0-47.0); HEMOGLOBIN 12.2 g/dl (12.0-16.0); LYMPHOCYTES # 0.7 10^3/ul (0.8-2.9); LYMPHOCYTES % 19.3 % (15.0-51.0); MEAN CORPUSCULAR HEMOGLOBIN 31.8 pg (29.0-33.0); MEAN CORPUSCULAR HGB CONC 32.7 g/dl (32.0-37.0); MEAN CORPUSCULAR VOLUME 97.1 fl (82.0-101.0); MEAN PLATELET VOLUME 9.4 fl (7.4-10.4); MONOCYTE # 0.1 10^3/ul (0.3-0.9); MONOCYTES % 3.5 % (0.0-11.0); NEUTROPHIL # 2.8 10^3/ul (1.6-7.5); NEUTROPHILS % 75.8 % (39.0-77.0); PLATELET COUNT 154 10^3/UL (140-415); RED BLOOD COUNT 3.84 10^6/ul (4.20-5.40); RED CELL DISTRIBUTION WIDTH 13.7 % (11.5-14.5)
[2018-09-14] MEDS: SODIUM CHLORIDE 0.9% 1L BAG IV* (13:31)
[2018-09-14] MEDS: morphine 4 MG/ML VIAL IV (13:32)
[2018-09-14] MEDS: ONDANSETRON 4 MG INJ IV (13:32)
[2018-09-14 13:33] LABS: ALANINE AMINOTRANSFERASE 36 IU/L (13-69); ALBUMIN/GLOBULIN RATIO 1.38; ALKALINE PHOSPHATASE 116 IU/L (42-121); ANION GAP 12 (5-13); ASPARTATE AMINO TRANSFERASE 35 IU/L (15-46); BILIRUBIN,INDIRECT 0.4 mg/dl (0-1.1); BILIRUBIN,TOTAL 0.4 mg/dl (0.2-1.3); BLOOD UREA NITROGEN 10 mg/dl (7-20); CALCIUM 9.9 mg/dl (8.4-10.2); CARBON DIOXIDE 28 mmol/L (21-31); CHLORIDE 100 mmol/L (97-110); CREATININE 0.66 mg/dl (0.44-1.00); Estimated GFR > 60 mL/min (>60); GLUCOSE 97 mg/dl (70-220); LIPASE 140 U/L (23-300); POTASSIUM 4.4 mmol/L (3.5-5.1); SODIUM 140 mmol/L (135-144); TOTAL PROTEIN 8.6 g/dl (6.1-8.1)
[2018-09-14 13:46] LABS: INR 0.88; PT RATIO 0.9
[2018-09-14] MEDS: KETOROLAC 30 MG INJ IV (14:05)
== END 2018-09-14 15:30 | disposition left against medical advice (07) ==
LOC: E/R 10:59
DX: R10.31 Right lower quadrant pain (principal); R11.0 Nausea; Z85.43 Personal history of malignant neoplasm of ovary
CPT/HCPCS: 36415; 80053; 83690; 85025; 85610; 87400; 93005; 96374; 96375; 99284-25

== ENCOUNTER 2018-09-27 12:01 | Emergency (ER) | payer OTHER ==
[2018-09-27 13:03] LABS: ADD MAN DIFF? NO
[2018-09-27 13:07] LABS: BASOPHILS % 0.3 % (0.0-2.0); EOSINOPHILS # 0.1 10^3/ul (0.0-0.5); EOSINOPHILS % 1.8 % (0.0-7.0); HEMATOCRIT 31.6 % (37.0-47.0); HEMOGLOBIN 10.5 g/dl (12.0-16.0); LYMPHOCYTES # 1.1 10^3/ul (0.8-2.9); LYMPHOCYTES % 28.8 % (15.0-51.0); MEAN CORPUSCULAR HEMOGLOBIN 32.8 pg (29.0-33.0); MEAN CORPUSCULAR HGB CONC 33.2 g/dl (32.0-37.0); MEAN CORPUSCULAR VOLUME 98.8 fl (82.0-101.0); MEAN PLATELET VOLUME 9.3 fl (7.4-10.4); MONOCYTE # 0.2 10^3/ul (0.3-0.9); MONOCYTES % 5.6 % (0.0-11.0); NEUTROPHIL # 2.5 10^3/ul (1.6-7.5); NEUTROPHILS % 63.5 % (39.0-77.0); PLATELET COUNT 261 10^3/UL (140-415); RED CELL DISTRIBUTION WIDTH 14.3 % (11.5-14.5)
[2018-09-27 13:07] LABS: WHITE BLOOD COUNT 3.9 10^3/ul (4.8-10.8)
[2018-09-27 13:54] LABS: ANION GAP 7 (5-13); BLOOD UREA NITROGEN 12 mg/dl (7-20); CALCIUM 9.3 mg/dl (8.4-10.2); CARBON DIOXIDE 27 mmol/L (21-31); CHLORIDE 105 mmol/L (97-110); CREATININE 0.55 mg/dl (0.44-1.00); Estimated GFR > 60 mL/min (>60); GLUCOSE 111 mg/dl (70-220); POTASSIUM 3.9 mmol/L (3.5-5.1); SODIUM 139 mmol/L (135-144)
[2018-09-27 14:05] LABS: TROPONIN-I < 0.012 ng/ml (0.000-0.120)
== END 2018-09-27 14:40 | disposition home or self-care (01) ==
LOC: E/R 12:01
DX: D72.819 Decreased white blood cell count, unspecified (principal); R07.89 Other chest pain; D64.9 Anemia, unspecified; F41.9 Anxiety disorder, unspecified; Z85.43 Personal history of malignant neoplasm of ovary
CPT/HCPCS: 36415; 71045; 80048; 84484; 85025; 93005; 99285-25

== ENCOUNTER 2018-10-18 10:52 | Emergency (ER) | payer OTHER ==
[2018-10-18] MEDS: PHENAZOPYRIDINE 100 MG TAB PO (12:30)
[2018-10-18] MEDS: ONDANSETRON 4 MG INJ IV (12:34)
[2018-10-18 12:38] LABS: ADD UMIC YES; UR ASCORBIC ACID NEGATIVE (NEGATIVE); UR BACTERIA FEW /HPF (NONE SEEN); UR BILIRUBIN (Dip) NEGATIVE (NEGATIVE); UR BLOOD (Dip) 1+ mg/dL (NEGATIVE); UR CLARITY SLIGHTLY CLOUDY (CLEAR); UR COLOR RED (YELLOW); UR GLUCOSE (Dip) NEGATIVE (NEGATIVE); UR KETONES (Dip) NEGATIVE (NEGATIVE); UR LEUKOCYTE ESTERASE (Dip) 2+ Leu/ul (NEGATIVE); UR NITRITE (Dip) NEGATIVE (NEGATIVE); UR RBC 5 /HPF (0-5); UR SPECIFIC GRAVITY (Dip) 1.009 (1.003-1.030); UR TOTAL PROTEIN (Dip) NEGATIVE (NEGATIVE); UR UROBILINOGEN (Dip) NEGATIVE (NEGATIVE); UR WBC 61 /HPF (0-5)
[2018-10-18 13:02] LABS: ADD MAN DIFF? NO
[2018-10-18 13:05] LABS: BASOPHILS % 0.4 % (0.0-2.0); EOSINOPHILS # 0.1 10^3/ul (0.0-0.5); EOSINOPHILS % 0.7 % (0.0-7.0); HEMATOCRIT 39.8 % (37.0-47.0); HEMOGLOBIN 12.8 g/dl (12.0-16.0); LYMPHOCYTES # 1.4 10^3/ul (0.8-2.9); LYMPHOCYTES % 16.8 % (15.0-51.0); MEAN CORPUSCULAR HEMOGLOBIN 32.2 pg (29.0-33.0); MEAN CORPUSCULAR HGB CONC 32.2 g/dl (32.0-37.0); MEAN CORPUSCULAR VOLUME 100.3 fl (82.0-101.0); MEAN PLATELET VOLUME 9.9 fl (7.4-10.4); MONOCYTE # 0.6 10^3/ul (0.3-0.9); MONOCYTES % 7.6 % (0.0-11.0); NEUTROPHIL # 6.2 10^3/ul (1.6-7.5); NEUTROPHILS % 74.4 % (39.0-77.0); PLATELET COUNT 255 10^3/UL (140-415); RED BLOOD COUNT 3.97 10^6/ul (4.20-5.40); RED CELL DISTRIBUTION WIDTH 13.8 % (11.5-14.5)
[2018-10-18 13:05] LABS: WHITE BLOOD COUNT 8.3 10^3/ul (4.8-10.8)
[2018-10-18 13:12] LABS: ALANINE AMINOTRANSFERASE 27 IU/L (13-69); ALBUMIN 4.4 g/dl (3.3-4.9); ALKALINE PHOSPHATASE 98 IU/L (42-121); ANION GAP 9 (5-13); ASPARTATE AMINO TRANSFERASE 31 IU/L (15-46); BILIRUBIN,INDIRECT 0.3 mg/dl (0-1.1); BILIRUBIN,TOTAL 0.3 mg/dl (0.2-1.3); BLOOD UREA NITROGEN 11 mg/dl (7-20); CARBON DIOXIDE 28 mmol/L (21-31); CHLORIDE 105 mmol/L (97-110); CREATININE 0.66 mg/dl (0.44-1.00); Estimated GFR > 60 mL/min (>60); GLUCOSE 97 mg/dl (70-220); POTASSIUM 4.4 mmol/L (3.5-5.1); SODIUM 142 mmol/L (135-144); TOTAL PROTEIN 8.4 g/dl (6.1-8.1)
[2018-10-18] MEDS: SOD CHLORIDE 0.9% 1,000 ML IV (13:28)
[2018-10-18] MEDS: CEFTRIAXONE 1 GM/50 ML (PMX) 50 ML IVPB (13:28)
[2018-10-18 13:51] LABS: INR 0.89; PROTIME 12.1 Sec (11.9-14.9); PT RATIO 0.9
[2018-10-18 13:52] LABS: PARTIAL THROMBOPLASTIN TIME 29.6 Sec (23.0-35.0)
[2018-10-18] MEDS: FLUCONAZOLE 150 MG TAB PO (15:00)
[2018-10-18] MEDS: traMADol 50 MG TAB PO (15:00)
== END 2018-10-18 15:40 | disposition home or self-care (01) ==
LOC: E/R 10:52
DX: N30.00 Acute cystitis without hematuria (principal); C56.9 Malignant neoplasm of unspecified ovary
CPT/HCPCS: 80053; 81001; 85025; 85610; 85730; 87086; 96361; 96365; 99284-25

== ENCOUNTER 2018-10-18 20:55 | Emergency (ER) | payer OTHER ==
[2018-10-18] MEDS: ONDANSETRON (ODT) 4 MG TAB ODT (23:20)
[2018-10-18] MEDS: KETOROLAC 30 MG INJ IM (23:21)
== END 2018-10-19 00:12 | disposition home or self-care (01) ==
LOC: E/R 10-19 00:12
DX: N30.90 Cystitis, unspecified without hematuria (principal); Z85.43 Personal history of malignant neoplasm of ovary
CPT/HCPCS: 96372; 99284-25

== ENCOUNTER 2018-10-19 10:00 | Emergency (ER) | payer OTHER ==
[2018-10-19 13:03] LABS: ADD MAN DIFF? NO
[2018-10-19 13:06] LABS: BASOPHILS % 0.5 % (0.0-2.0); EOSINOPHILS % 0.3 % (0.0-7.0); HEMATOCRIT 36.8 % (37.0-47.0); LYMPHOCYTES # 1.1 10^3/ul (0.8-2.9); LYMPHOCYTES % 17.4 % (15.0-51.0); MEAN CORPUSCULAR HEMOGLOBIN 31.7 pg (29.0-33.0); MEAN CORPUSCULAR HGB CONC 32.6 g/dl (32.0-37.0); MEAN CORPUSCULAR VOLUME 97.4 fl (82.0-101.0); MEAN PLATELET VOLUME 9.5 fl (7.4-10.4); MONOCYTE # 0.5 10^3/ul (0.3-0.9); MONOCYTES % 7.4 % (0.0-11.0); NEUTROPHIL # 4.5 10^3/ul (1.6-7.5); NEUTROPHILS % 73.9 % (39.0-77.0); PLATELET COUNT 226 10^3/UL (140-415); RED BLOOD COUNT 3.78 10^6/ul (4.20-5.40); RED CELL DISTRIBUTION WIDTH 13.7 % (11.5-14.5)
[2018-10-19 13:06] LABS: WHITE BLOOD COUNT 6.1 10^3/ul (4.8-10.8)
[2018-10-19] MEDS: DIPHENHYDRAMINE 50 MG INJ IV (13:13)
[2018-10-19] MEDS: PROCHLORPERAZINE 10 MG INJ IV (13:13)
[2018-10-19] MEDS: SOD CHLORIDE 0.9% 1,000 ML IV (13:14)
[2018-10-19] MEDS: HYDROmorphONE 1 MG/ML SYG IV (13:23)
[2018-10-19 13:24] LABS: ALANINE AMINOTRANSFERASE 28 IU/L (13-69); ALBUMIN 4.2 g/dl (3.3-4.9); ALBUMIN/GLOBULIN RATIO 1.23; ALKALINE PHOSPHATASE 92 IU/L (42-121); ANION GAP 9 (5-13); ASPARTATE AMINO TRANSFERASE 24 IU/L (15-46); BILIRUBIN,INDIRECT 0.3 mg/dl (0-1.1); BILIRUBIN,TOTAL 0.3 mg/dl (0.2-1.3); BLOOD UREA NITROGEN 9 mg/dl (7-20); CARBON DIOXIDE 26 mmol/L (21-31); CHLORIDE 106 mmol/L (97-110); CREATININE 0.57 mg/dl (0.44-1.00); Estimated GFR > 60 mL/min (>60); GLUCOSE 106 mg/dl (70-220); POTASSIUM 4.4 mmol/L (3.5-5.1); SODIUM 141 mmol/L (135-144); TOTAL PROTEIN 7.6 g/dl (6.1-8.1)
[2018-10-19 14:00] LABS: ADD UMIC YES; UR ASCORBIC ACID NEGATIVE (NEGATIVE); UR BACTERIA FEW /HPF (NONE SEEN); UR BILIRUBIN (Dip) NEGATIVE (NEGATIVE); UR BLOOD (Dip) NEGATIVE (NEGATIVE); UR CLARITY CLEAR (CLEAR); UR COLOR STRAW (YELLOW); UR GLUCOSE (Dip) NEGATIVE (NEGATIVE); UR KETONES (Dip) TRACE mg/dL (NEGATIVE); UR LEUKOCYTE ESTERASE (Dip) TRACE Leu/ul (NEGATIVE); UR NITRITE (Dip) NEGATIVE (NEGATIVE); UR RBC 0 /HPF (0-5); UR SPECIFIC GRAVITY (Dip) 1.008 (1.003-1.030); UR TOTAL PROTEIN (Dip) NEGATIVE (NEGATIVE); UR UROBILINOGEN (Dip) NEGATIVE (NEGATIVE); UR WBC 7 /HPF (0-5)
== END 2018-10-19 15:37 | disposition home or self-care (01) ==
LOC: E/R 10:00
DX: G43.909 Migraine, unspecified, not intractable, without status migrainosus (principal); Z85.43 Personal history of malignant neoplasm of ovary
CPT/HCPCS: 36415; 70450; 80053; 81001; 85025; 96361; 96374; 96375; 99285-25

== ENCOUNTER 2018-11-12 10:54 | Emergency (ER) | payer OTHER ==
[2018-11-12 12:08] LABS: URINE PH (Dip) POC 8.5 (5.0-8.5)
[2018-11-12 12:08] LABS: URINE BLOOD (Dip) POC Trace-intact (NEGATIVE); URINE GLUCOSE (Dip) POC Negative (NEGATIVE); URINE KETONES (Dip) POC Negative (NEGATIVE); URINE LEUKOCYTE EST (Dip) POC Negative (NEGATIVE); URINE NITRITE (Dip) POC Negative (NEGATIVE); URINE TOTAL PROTEIN POC 2+ (NEGATIVE)
[2018-11-12] MEDS: ONDANSETRON 4 MG INJ IV (12:13)
[2018-11-12] MEDS: KETOROLAC 30 MG INJ IV (12:14)
[2018-11-12] MEDS: LACTATED RINGER'S 1,000 ML IV (12:14)
[2018-11-12 12:26] LABS: ADD MAN DIFF? NO
[2018-11-12 12:27] LABS: WHITE BLOOD COUNT 5.5 10^3/ul (4.8-10.8)
[2018-11-12 12:27] LABS: BASOPHILS % 0.4 % (0.0-2.0); EOSINOPHILS # 0.1 10^3/ul (0.0-0.5); HEMATOCRIT 42.4 % (37.0-47.0); HEMOGLOBIN 13.6 g/dl (12.0-16.0); LYMPHOCYTES # 1.3 10^3/ul (0.8-2.9); LYMPHOCYTES % 23.2 % (15.0-51.0); MEAN CORPUSCULAR HEMOGLOBIN 31.4 pg (29.0-33.0); MEAN CORPUSCULAR HGB CONC 32.1 g/dl (32.0-37.0); MEAN CORPUSCULAR VOLUME 97.9 fl (82.0-101.0); MEAN PLATELET VOLUME 9.6 fl (7.4-10.4); MONOCYTE # 0.6 10^3/ul (0.3-0.9); NEUTROPHIL # 3.5 10^3/ul (1.6-7.5); NEUTROPHILS % 64.2 % (39.0-77.0); PLATELET COUNT 253 10^3/UL (140-415); RED BLOOD COUNT 4.33 10^6/ul (4.20-5.40); RED CELL DISTRIBUTION WIDTH 13.1 % (11.5-14.5)
[2018-11-12 12:48] LABS: ALANINE AMINOTRANSFERASE 24 IU/L (13-69); ALBUMIN 4.5 g/dl (3.3-4.9); ALBUMIN/GLOBULIN RATIO 1.25; ALKALINE PHOSPHATASE 91 IU/L (42-121); ANION GAP 8 (5-13); ASPARTATE AMINO TRANSFERASE 30 IU/L (15-46); BILIRUBIN,INDIRECT 0.6 mg/dl (0-1.1); BILIRUBIN,TOTAL 0.6 mg/dl (0.2-1.3); BLOOD UREA NITROGEN 9 mg/dl (7-20); CALCIUM 9.6 mg/dl (8.4-10.2); CARBON DIOXIDE 32 mmol/L (21-31); CHLORIDE 100 mmol/L (97-110); CREATININE 0.72 mg/dl (0.44-1.00); Estimated GFR > 60 mL/min (>60); GLUCOSE 98 mg/dl (70-220); LIPASE 87 U/L (23-300); POTASSIUM 4.1 mmol/L (3.5-5.1); SODIUM 140 mmol/L (135-144); TOTAL PROTEIN 8.1 g/dl (6.1-8.1)
[2018-11-12] MEDS: PANTOPRAZOLE (EC) 40 MG TAB PO (13:16)
== END 2018-11-12 13:51 | disposition home or self-care (01) ==
LOC: E/R 10:54
DX: K59.00 Constipation, unspecified (principal); Z85.43 Personal history of malignant neoplasm of ovary
CPT/HCPCS: 36415; 80053; 81003; 81025; 83690; 85025; 96374; 96375; 99284-25

== ENCOUNTER 2018-11-30 09:31 | Emergency (ER) | payer OTHER ==
[2018-11-30 10:10] LABS: ADD MAN DIFF? NO
[2018-11-30 10:12] LABS: WHITE BLOOD COUNT 2.6 10^3/ul (4.8-10.8)
[2018-11-30 10:12] LABS: BASOPHILS % 0.8 % (0.0-2.0); EOSINOPHILS # 0.1 10^3/ul (0.0-0.5); EOSINOPHILS % 2.3 % (0.0-7.0); HEMATOCRIT 38.5 % (37.0-47.0); HEMOGLOBIN 12.4 g/dl (12.0-16.0); LYMPHOCYTES # 0.9 10^3/ul (0.8-2.9); MEAN CORPUSCULAR HEMOGLOBIN 31.8 pg (29.0-33.0); MEAN CORPUSCULAR HGB CONC 32.2 g/dl (32.0-37.0); MEAN CORPUSCULAR VOLUME 98.7 fl (82.0-101.0); MEAN PLATELET VOLUME 8.9 fl (7.4-10.4); MONOCYTE # 0.3 10^3/ul (0.3-0.9); MONOCYTES % 12.5 % (0.0-11.0); NEUTROPHIL # 1.3 10^3/ul (1.6-7.5); NEUTROPHILS % 49.4 % (39.0-77.0); PLATELET COUNT 242 10^3/UL (140-415); RED CELL DISTRIBUTION WIDTH 14.3 % (11.5-14.5)
[2018-11-30] MEDS: LACTATED RINGER'S 1,000 ML IV (10:16)
[2018-11-30] MEDS: ONDANSETRON 4 MG INJ IV (10:16)
[2018-11-30] MEDS: KETOROLAC 30 MG INJ IV (10:17)
[2018-11-30 10:34] LABS: ALANINE AMINOTRANSFERASE 20 IU/L (13-69); ALBUMIN 4.3 g/dl (3.3-4.9); ALBUMIN/GLOBULIN RATIO 1.26; ALKALINE PHOSPHATASE 76 IU/L (42-121); ANION GAP 10 (5-13); ASPARTATE AMINO TRANSFERASE 25 IU/L (15-46); BILIRUBIN,INDIRECT 0.4 mg/dl (0-1.1); BILIRUBIN,TOTAL 0.4 mg/dl (0.2-1.3); BLOOD UREA NITROGEN 7 mg/dl (7-20); CALCIUM 9.7 mg/dl (8.4-10.2); CARBON DIOXIDE 28 mmol/L (21-31); CHLORIDE 104 mmol/L (97-110); CREATININE 0.64 mg/dl (0.44-1.00); Estimated GFR > 60 mL/min (>60); GLUCOSE 107 mg/dl (70-220); LIPASE 101 U/L (23-300); POTASSIUM 3.9 mmol/L (3.5-5.1); SODIUM 142 mmol/L (135-144); TOTAL PROTEIN 7.7 g/dl (6.1-8.1)
[2018-11-30 10:36] LABS: ADD UMIC YES; UR ASCORBIC ACID NEGATIVE (NEGATIVE); UR BACTERIA FEW /HPF (NONE SEEN); UR BILIRUBIN (Dip) NEGATIVE (NEGATIVE); UR BLOOD (Dip) NEGATIVE (NEGATIVE); UR CLARITY SLIGHTLY CLOUDY (CLEAR); UR COLOR YELLOW (YELLOW); UR GLUCOSE (Dip) NEGATIVE (NEGATIVE); UR KETONES (Dip) NEGATIVE (NEGATIVE); UR LEUKOCYTE ESTERASE (Dip) 1+ Leu/ul (NEGATIVE); UR MUCUS MODERATE /HPF (NONE SEEN); UR NITRITE (Dip) NEGATIVE (NEGATIVE); UR RBC 4 /HPF (0-5); UR SPECIFIC GRAVITY (Dip) 1.017 (1.003-1.030); UR TOTAL PROTEIN (Dip) NEGATIVE (NEGATIVE); UR UROBILINOGEN (Dip) NEGATIVE (NEGATIVE); UR WBC 60 /HPF (0-5)
[2018-11-30] MEDS: CEFTRIAXONE 1 GM/50 ML (PMX) 50 ML IVPB (10:50)
== END 2018-11-30 11:21 | disposition home or self-care (01) ==
LOC: E/R 09:31
DX: N30.90 Cystitis, unspecified without hematuria (principal); C56.9 Malignant neoplasm of unspecified ovary
CPT/HCPCS: 36415; 71045; 80053; 81001; 83690; 85025; 96361; 96365; 96375; 99284-25

== ENCOUNTER 2019-02-05 09:53 | Emergency (ER) | payer OTHER ==
[2019-02-05] MEDS: SOD CHLORIDE 0.9% 1,000 ML IV (10:48)
[2019-02-05 10:57] LABS: ADD MAN DIFF? NO
[2019-02-05 11:00] LABS: WHITE BLOOD COUNT 3.2 10^3/ul (4.8-10.8)
[2019-02-05 11:00] LABS: BASOPHILS % 0.6 % (0.0-2.0); EOSINOPHILS # 0.1 10^3/ul (0.0-0.5); EOSINOPHILS % 1.5 % (0.0-7.0); HEMOGLOBIN 11.2 g/dl (12.0-16.0); LYMPHOCYTES # 1.1 10^3/ul (0.8-2.9); LYMPHOCYTES % 33.4 % (15.0-51.0); MEAN CORPUSCULAR HEMOGLOBIN 32.9 pg (29.0-33.0); MEAN CORPUSCULAR VOLUME 102.9 fl (82.0-101.0); MONOCYTE # 0.5 10^3/ul (0.3-0.9); MONOCYTES % 13.9 % (0.0-11.0); NEUTROPHIL # 1.6 10^3/ul (1.6-7.5); NEUTROPHILS % 50.3 % (39.0-77.0); PLATELET COUNT 265 10^3/UL (140-415); RED CELL DISTRIBUTION WIDTH 15.5 % (11.5-14.5)
[2019-02-05 11:13] LABS: ALANINE AMINOTRANSFERASE 25 IU/L (13-69); ALKALINE PHOSPHATASE 77 IU/L (42-121); ANION GAP 6 (5-13); ASPARTATE AMINO TRANSFERASE 25 IU/L (15-46); BILIRUBIN,INDIRECT 0.4 mg/dl (0-1.1); BILIRUBIN,TOTAL 0.4 mg/dl (0.2-1.3); BLOOD UREA NITROGEN 5 mg/dl (7-20); CALCIUM 9.1 mg/dl (8.4-10.2); CARBON DIOXIDE 35 mmol/L (21-31); CHLORIDE 101 mmol/L (97-110); CREATININE 0.69 mg/dl (0.44-1.00); Estimated GFR > 60 mL/min (>60); GLUCOSE 102 mg/dl (70-220); LIPASE 89 U/L (23-300); POTASSIUM 3.6 mmol/L (3.5-5.1); SODIUM 142 mmol/L (135-144)
[2019-02-05 11:21] LABS: ADD UMIC YES; UR AMORPHOUS CRYSTAL FEW /HPF (NONE SEEN); UR ASCORBIC ACID NEGATIVE (NEGATIVE); UR BACTERIA FEW /HPF (NONE SEEN); UR BILIRUBIN (Dip) NEGATIVE (NEGATIVE); UR BLOOD (Dip) NEGATIVE (NEGATIVE); UR CLARITY CLOUDY (CLEAR); UR COLOR YELLOW (YELLOW); UR GLUCOSE (Dip) NEGATIVE (NEGATIVE); UR KETONES (Dip) NEGATIVE (NEGATIVE); UR LEUKOCYTE ESTERASE (Dip) NEGATIVE Leu/ul (NEGATIVE); UR MUCUS MANY /HPF (NONE SEEN); UR NITRITE (Dip) NEGATIVE (NEGATIVE); UR RBC 1 /HPF (0-5); UR SPECIFIC GRAVITY (Dip) 1.019 (1.003-1.030); UR TOTAL PROTEIN (Dip) 1+ mg/dl (NEGATIVE); UR UROBILINOGEN (Dip) NEGATIVE (NEGATIVE); UR WBC 3 /HPF (0-5)
[2019-02-05] MEDS: KETOROLAC 15 MG INJ IV (11:39)
[2019-02-05] MEDS: SOD CHLORIDE 0.9% 100 ML (11:52)
[2019-02-05] MEDS: IOHEXOL 300MG/ML 150 ML BTL (11:52)
== END 2019-02-05 12:59 | disposition home or self-care (01) ==
LOC: FTE 09:53
DX: R10.9 Unspecified abdominal pain (principal); R18.8 Other ascites; C56.9 Malignant neoplasm of unspecified ovary
CPT/HCPCS: 36415; 74177; 80053; 81001; 81025; 83690; 85025; 96361; 96374; 99285-25

== ENCOUNTER 2019-02-22 09:04 | Emergency (ER) | payer OTHER ==
[2019-02-22] MEDS: BELLADONNA/PHENOBARBITAL TAB PO (10:36)
[2019-02-22] MEDS: DICYCLOMINE 20 MG INJ IM (10:36)
[2019-02-22] MEDS: FAMOTIDINE 20 MG TAB PO (10:36)
[2019-02-22 10:53] LABS: ADD MAN DIFF? NO
[2019-02-22 10:54] LABS: BASOPHILS % 0.5 % (0.0-2.0); EOSINOPHILS # 0.2 10^3/ul (0.0-0.5); EOSINOPHILS % 2.8 % (0.0-7.0); HEMATOCRIT 36.2 % (37.0-47.0); HEMOGLOBIN 11.5 g/dl (12.0-16.0); LYMPHOCYTES % 16.9 % (15.0-51.0); MEAN CORPUSCULAR HEMOGLOBIN 32.5 pg (29.0-33.0); MEAN CORPUSCULAR HGB CONC 31.8 g/dl (32.0-37.0); MEAN CORPUSCULAR VOLUME 102.3 fl (82.0-101.0); MEAN PLATELET VOLUME 8.7 fl (7.4-10.4); MONOCYTE # 0.7 10^3/ul (0.3-0.9); MONOCYTES % 10.8 % (0.0-11.0); NEUTROPHIL # 4.1 10^3/ul (1.6-7.5); NEUTROPHILS % 68.5 % (39.0-77.0); PLATELET COUNT 438 10^3/UL (140-415); RED BLOOD COUNT 3.54 10^6/ul (4.20-5.40); RED CELL DISTRIBUTION WIDTH 14.8 % (11.5-14.5)
[2019-02-22] MEDS: ONDANSETRON (ODT) 4 MG TAB ODT (10:58)
[2019-02-22] MEDS: LIDOCAINE/MYLANTA 40 ML BTL PO (10:58)
[2019-02-22 11:13] LABS: INR 1.02; PROTIME 13.5 Sec (11.9-14.9); PT RATIO 1.1
[2019-02-22 11:15] LABS: LACTIC ACID 0.8 mmol/L (0.5-2.0)
[2019-02-22 11:17] LABS: ANION GAP 7 (5-13); BLOOD UREA NITROGEN 8 mg/dl (7-20); CALCIUM 9.6 mg/dl (8.4-10.2); CARBON DIOXIDE 30 mmol/L (21-31); CHLORIDE 103 mmol/L (97-110); CREATININE 0.79 mg/dl (0.44-1.00); Estimated GFR > 60 mL/min (>60); GLUCOSE 104 mg/dl (70-220); POTASSIUM 4.4 mmol/L (3.5-5.1); SODIUM 140 mmol/L (135-144)
[2019-02-22 11:33] LABS: INR 1.03; PROTIME 13.6 Sec (11.9-14.9); PT RATIO 1.1
[2019-02-22 11:34] LABS: PARTIAL THROMBOPLASTIN TIME 35.5 Sec (23.0-35.0); THROMBIN TIME 31.6 SEC (13.8-19.1)
[2019-02-22 11:38] LABS: PLATELET COUNT 460 10^3/UL (140-415)
[2019-02-22] MEDS: LIDOCAINE 1% (MPF) 5 ML VIAL (12:24)
[2019-02-22] MEDS: KETOROLAC 15 MG INJ IV (12:41)
[2019-02-22 13:16] LABS: FLD RBC 1000 /uL; FLD WBC 382 /cmm
[2019-02-22 13:22] LABS: FLD TYPE ASCITES
[2019-02-22 13:23] LABS: FLD CLARITY SLIGHTLY HAZY; FLD COLOR YELLOW
[2019-02-22 14:02] LABS: FLD MN% 91.9 %; FLD PMN% 8.1 %
[2019-02-22 14:03] LABS: PATH REVIEW? YES
== END 2019-02-22 16:13 | disposition home or self-care (01) ==
LOC: E/R 09:04
DX: D47.3 Essential (hemorrhagic) thrombocythemia (principal); R18.0 Malignant ascites; R10.13 Epigastric pain; D53.9 Nutritional anemia, unspecified; C56.9 Malignant neoplasm of unspecified ovary
CPT/HCPCS: 80048; 83605; 85025; 85049; 85610; 85670; 85730; 87070; 87075; 87102; 87116; 88104; 88305; 89051; 96372; 96374; 99285-25

== ENCOUNTER 2019-03-15 09:13 | Emergency (ER) | payer OTHER ==
[2019-03-15] MEDS ORDERED: ONDANSETRON 4 MG INJ (10:35)
[2019-03-15] MEDS: D5W-0.45 NACL + KCL 20 MEQ 1,000 ML IV (10:53)
[2019-03-15] MEDS: KETOROLAC 15 MG INJ IM (11:23)
[2019-03-15] MEDS: FAMOTIDINE 20 MG INJ IV (11:23)
[2019-03-15] MEDS: ONDANSETRON 4 MG INJ IV (11:23)
== END 2019-03-15 12:59 | disposition home or self-care (01) ==
LOC: E/R 09:13
DX: R11.10 Vomiting, unspecified (principal); Z85.43 Personal history of malignant neoplasm of ovary
CPT/HCPCS: 36415; 80053; 81001; 83690; 83735; 84100; 85025; 96372; 96374; 96375; 99284-25